=== PATIENT | female | born 1980 | race Caucasian/White ===

== ENCOUNTER → 2019-02-17 15:46 | Outpatient (CLI) | payer OTHER, SELFPAY ==
--- NOTE | 2019-02-17 15:49 | DI.RAD.S_ITS ---
PROCEDURE: XR LUMBAR SPINE 2-3V INDICATIONS: LOW BACK PAIN TECHNIQUE: 4 views of the lumbar spine were acquired. COMPARISON: None. FINDINGS: Bones: 5 [id number] vertebrae are present. Mild levocurvature of the upper lumbar spine. Multilevel lumbar spondylosis most prominent at the lumbosacral junction and thoracolumbar junction. No acute vertebral body compression fractures. Lower lumbar facet arthrosis. No suspicious bony lesions. Soft tissues: Overlying bowel gas pattern is normal. No suspicious soft tissue calcifications. Post cholecystectomy clips in the right upper abdomen. IMPRESSION: Lumbar spine without acute osseous abnormalities. Multilevel lumbar spondylosis. Dictated by: Torsten Obrien M.D. on 02/17/2019 at 16:35 Approved by: Torsten Obrien M.D. on 02/17/2019 at 16:37
== END ==
PROVIDERS: PCP Nurse Practitioner; Visit Provider Physician Assistant
DX: M54.5 Low back pain (principal); M47.816 Spondylosis without myelopathy or radiculopathy, lumbar region; M47.815 Spondylosis without myelopathy or radiculopathy, thoracolumbar region; M47.817 Spondylosis without myelopathy or radiculopathy, lumbosacral region
CPT/HCPCS: 72100

== ENCOUNTER 2020-07-21 22:18 | Emergency (ER) | payer OTHER, SELFPAY ==
[2020-07-21 22:25] VITALS: BP 182/101; PULSE 91; O2SAT 97
[2020-07-21 22:28] VITALS: BP 182/101; PULSE 97; RESP 20; O2SAT 99
[2020-07-21 22:30] VITALS: BP 147/98; PULSE 97; O2SAT 99
--- NOTE | 2020-07-21 22:32 | ED.ANXIETY ---
HPI - Anxiety General Chief Complaint: Anxiety Stated Complaint: difficulty breathing Time Seen by Provider: 07/21/20 22:28 Source: patient and family () Mode of arrival: Wheelchair Limitations: no limitations History of Present Illness HPI narrative: 40-year-old female with a known history of anxiety here for evaluation of a panic attack, acute anxiety, chest discomfort. Patient's provides most of the HPI secondary to the patient's unwillingness/inability to answer questions secondary to crying and having a panic attack. He states that earlier this evening without any specific cause the patient started having a panic attack. She is also having left-sided chest discomfort. They took aspirin prior to arrival. Patient's states the patient has had heart issues in the past. Patient's states that her primary doctor told her that she probably had ?a small heart attack? he did not do any other information regarding this. She did not take any of her anxiety medicines prior to arrival Related Data Home Medications Medication Instructions Recorded Confirmed aspirin 81 mg tablet,delayed 81 mg PO DAILY 02/17/19 02/17/19 release atorvastatin 20 mg tablet 20 mg PO DAILY 02/17/19 02/17/19 clopidogrel 75 mg tablet 75 mg PO DAILY 02/17/19 02/17/19 doxycycline monohydrate 100 mg 100 mg PO DAILY 02/17/19 02/17/19 capsule lisinopril 5 mg tablet 5 mg PO DAILY 02/17/19 02/17/19 metoprolol succinate 25 mg capsule 25 mg PO DAILY 02/17/19 02/17/19 sprinkle, ext. release 24 hr prazosin 1 mg capsule 1 mg PO BID 02/17/19 02/17/19 spironolactone 50 mg tablet 50 mg PO BID 02/17/19 02/17/19 Previous Rx's Medication Instructions Recorded cyclobenzaprine 10 mg tablet 10 mg PO BEDTIME #30 tab 02/17/19 Allergies Allergy/AdvReac Type Severity Reaction Status Date / Time No Known Drug Allergies Allergy Verified 02/17/19 14:45 Review of Systems Constitutional Constitutional: Denies fever(s) and Denies headache(s) ENT Ears, Nose, Mouth, and Throat: Denies headache(s) Cardiovascular Cardiovascular: Reports chest pain and Reports dyspnea Respiratory Respiratory: Denies cough and Reports dyspnea Gastrointestinal Gastrointestinal: Denies nausea and Denies vomiting Musculoskeletal Musculoskeletal: Denies arthralgias and Denies myalgias Integumentary/Breasts Skin/Breast: Denies rash Neurologic Neurologic: Denies behavioral changes and Denies headache(s) Psychiatric Psychiatric: Denies behavioral changes Hematologic/Lymphatic Hematologic/Lymphatic: Denies easy bleeding and Denies easy bruising Patient History Medical History Anxiety (Acute) Social History Smoking Status: Former smoker Smoking Status: Former smoker Exam Initial Vital Signs Initial Vital Signs: Vital Signs Pulse Rate 91 H 07/21/20 22:25 Blood Pressure 182/101 H 07/21/20 22:25 Pulse Oximetry 97 07/21/20 22:25 Const General: anxious Limitations: mental status not altered HENMT Head: normal to inspection and normocephalic Chest Chest: No crepitus and tenderness (Left-sided chest) Resp Effort & Inspection: normal respiratory effort Auscultation: clear to auscultation bilaterally Cardio Rate: regular rate Rhythm: regular rhythm Skin Lesions: no lesions Rashes: no rashes Neuro General: patient alert and patient awake Extrem General: normal to inspection and capillary refill normal Psych Appearance: well kempt Speech and Movement: restless Mood: anxious mood Course Orders Ordered: ED Orders 07/21/20 22:32 EKG-12 Lead Stat 07/21/20 23:14 XR chest 1V Stat 07/21/20 23:20 Basic Metabolic Panel Stat Complete Blood Count AUTO DIFF Stat Troponin & CK Cardiac Panel Stat Discontinued Medications Lorazepam (Ativan) 1 mg PO NOW ONE Stop: 07/21/20 22:33 Last Admin: 07/21/20 22:38 Dose: 1 mg Documented by: AUPDIKE Vital Signs Vital signs: Vital Signs - 8 hr 07/21/20 22:25 07/21/20 22:28 07/21/20 22:30 Pulse Rate 91 H 97 H 97 H Respiratory Rate 20 Blood Pressure 182/101 H 182/101 H 147/98 H Pulse Oximetry 97 99 99 07/21/20 23:00 07/21/20 23:30 07/21/20 23:48 Pulse Rate 86 84 90 Respiratory Rate Blood Pressure 157/90 H 145/88 H Pulse Oximetry 95 96 97 07/22/20 00:00 Pulse Rate 89 Respiratory Rate Blood Pressure Pulse Oximetry 97 MDM - Anxiety Medical Records Attestation: I reviewed the patient's medical records. Lab Data Attestation: I reviewed the patient's lab results. Result diagrams: 07/21/20 23:20 07/21/20 23:20 Labs: Lab Results 07/21/20 07/21/20 Range/Units 23:20 23:20 WBC 10.4 (4.5-11.0) X10^3/uL RBC 4.28 (4.0-5.2) X10^6/uL Hgb 12.9 (12.0-16.0) g/dL Hct 37.7 (36-46) % MCV 88.2 (80-100) fL MCH 30.3 (26-34) PG MCHC 34.3 (30-36) % RDW 13.1 (11.6-14.8) % Plt Count 334 (150-400) X10^3/uL Neut % (Auto) 60.4 (50-75) % Lymph % (Auto) 29.2 (25-40) % [place] % (Auto) 9.1 (3-14) % Eos % (Auto) 0.6 L (2-4) % Baso % (Auto) 0.7 (0-2) % Neut # (Auto) 6300 (7107-3846) /uL Lymph # (Auto) 3000 (4809-0501) /uL [place] # (Auto) 900 (0-900) /uL Eos # (Auto) 100 (0-450) /uL Baso # (Auto) 100 (0-100) /uL Sodium 137 (137-145) mmol/L Potassium 3.7 (3.4-5.1) mmol/L Chloride 103 (98-107) mmol/L Carbon Dioxide 30 (22-32) mmol/L BUN 21 H (7-17) mg/dL Creatinine 0.69 (0.52-1.04) mg/dL Estimated GFR > 60.0 (>60) mL/min BUN/Creatinine Ratio 30.4 H (6-22) Glucose 127 H (70-100) mg/dL Calcium 9.0 (8.4-10.2) mg/dL Total Creatine Kinase 177 H (30-135) U/L CK-MB (CK-2) 1.57 (<2.37) ng/mL CK-MB (CK-2) Rel Index 0.9 L (1.5-5.0) % Troponin I < 0.012 (0.01-0.034) ng/mL Imaging Data Chest x-ray: Attestation: I personally reviewed and interpreted this imaging study as follows: My Impression: No pneumothorax, no pneumonia ECG Data Attestation: I personally reviewed and interpreted this ECG as follows: Prior ECG tracings: not available for review Interpretation: Sinus rhythm Ventricular rate 88 Normal axis Normal QRS Normal QTC No ST T wave changes MDM Narrative Medical decision making narrative: Patient obviously having anxiety issues upon arrival. This did improve after oral Ativan. I do have low suspicion that her symptoms are ACS however patient insisted that she have blood drawn. This was unremarkable. Her EKG was unremarkable. Chest x-ray is unremarkable. The feel can hold on further workup for now. Patient going to contact her primary provider for follow-up. She expressed understanding and agreement. Discharge Plan Departure Patient Disposition: Home Clinical Impression: Acute anxiety Discharge Date/Time: 07/22/20 00:20 Instructions: DI for Anxiety -- Adult Activity Restrictions/Additional Instructions: Continue all of your medications as directed. I do recommend that you talk with her primary provider about the tingling that you are having in your hands. Return to the emergency department for any new or worsening symptoms Prescriptions: No Action atorvastatin 20 mg tablet 20 mg PO DAILY RF: 0 prazosin 1 mg capsule 1 mg PO BID RF: 0 clopidogrel [Plavix] 75 mg tablet 75 mg PO DAILY RF: 0 aspirin [Adult Aspirin Regimen] 81 mg tablet,delayed release (DR/EC) 81 mg PO DAILY RF: 0 doxycycline monohydrate 100 mg capsule 100 mg PO DAILY RF: 0 lisinopril 5 mg tablet 5 mg PO DAILY RF: 0 spironolactone 50 mg tablet 50 mg PO BID RF: 0 metoprolol succinate 25 mg capmainorle,ER 24hr dose pack 25 mg PO DAILY RF: 0 cyclobenzaprine 10 mg tablet 10 mg PO BEDTIME Qty: 30 RF: 0 Referrals: Jenae Villanueva ARNP [Primary Care Provider] -
[2020-07-21] MEDS: LORazepam 0.5 MG TABLET 1 MG PO (22:38)
[2020-07-21 23:00] VITALS: BP 157/90; PULSE 86; O2SAT 95
--- NOTE | 2020-07-21 23:10 | PC.NURSE ---
Pt states that the Ativan has began to help and is now able to speak in complete sentences. She did state that she does not believe that this is just an anxiety attack and is nervous about having had a heart attack. informed. Labs being ordered
--- NOTE | 2020-07-21 23:14 | DI.RAD.S_ITS ---
PROCEDURE: XR CHEST 1V INDICATIONS: Chest pain TECHNIQUE: One view of the chest was acquired. COMPARISON: None. FINDINGS: Surgical changes and devices: None. Lungs and pleura: Lungs are clear. No pleural effusions or pneumothorax. Mediastinum: Mediastinal contours appear normal. Heart size is normal. Bones and chest wall: No suspicious bony lesions. Overlying soft tissues appear unremarkable. IMPRESSION: No acute disease. Dictated by: Olegario Bates M.D. on 07/22/2020 at 8:25 Approved by: Olegario Bates M.D. on 07/22/2020 at 8:26
[2020-07-21 23:29] LABS: Add Manual Diff / Slide Review NO; Basophils Absolute Auto 100 /uL (0-100); Basophils Percent Auto 0.7 % (0-2); Eosinophils Absolute Auto 100 /uL (0-450); Eosinophils Percent Auto 0.6 % (2-4); Hematocrit 37.7 % (36-46); Hemoglobin 12.9 g/dL (12.0-16.0); Lymphocytes Absolute Auto 3000 /uL (1100-4500); Lymphocytes Percent Auto 29.2 % (25-40); Mean Corpuscular HGB Conc 34.3 % (30-36); Mean Corpuscular Hemoglobin 30.3 PG (26-34); Mean Corpuscular Volume 88.2 fL (80-100); Monocytes Absolute Auto 900 /uL (0-900); Monocytes Percent Auto 9.1 % (3-14); Neutrophils Absolute Auto 6300 /uL (1500-7000); Neutrophils Percent Auto 60.4 % (50-75); Platelet Count 334 X10^3/uL (150-400); Red Blood Cell Count 4.28 X10^6/uL (4.0-5.2); Red Cell Distribution Width 13.1 % (11.6-14.8); White Blood Cell Count 10.4 X10^3/uL (4.5-11.0)
[2020-07-21 23:30] VITALS: PULSE 84; O2SAT 96
[2020-07-21 23:35] LABS: HEMOLYSIS < 15 (0-50); Potassium 3.7 mmol/L (3.4-5.1)
[2020-07-21 23:37] LABS: BUN Creatinine Ratio 30.4 (6-22); Blood Urea Nitrogen 21 mg/dL (7-17); Carbon Dioxide 30 mmol/L (22-32); Chloride 103 mmol/L (98-107); Creatine Kinase 177 U/L (30-135); Estimated Glomerular Filt Rate > 60.0 mL/min (>60); Glucose 127 mg/dL (70-100); Sodium 137 mmol/L (137-145)
[2020-07-21 23:48] VITALS: BP 145/88; PULSE 90; O2SAT 97
[2020-07-21 23:50] LABS: Troponin I < 0.012 ng/mL (0.01-0.034)
[2020-07-21 23:53] LABS: CKMB % Relative Index 0.9 % (1.5-5.0); Creatine Kinase MB 1.57 ng/mL (<2.37)
[2020-07-22] VITALS: PULSE 89; O2SAT 97
== END 2020-07-22 00:20 | disposition home or self-care (01) ==
PROVIDERS: Emergency Provider Emergency Medicine; PCP Nurse Practitioner
DX: F41.9 Anxiety disorder, unspecified (principal); R07.9 Chest pain, unspecified; R06.00 Dyspnea, unspecified
CPT/HCPCS: 71045; 80048; 82550; 82553; 84484; 85025; 93005; 99283; 99284

== ENCOUNTER → 2020-11-11 15:24 | Outpatient (CLI) | payer OTHER, SELFPAY ==
[2020-11-11 16:23] LABS: COVID19 -Nasal RAPID Negative (Negative)
== END ==
PROVIDERS: PCP Nurse Practitioner; Visit Provider Family Medicine Sleep Medicine
DX: Z20.822 Contact with and (suspected) exposure to COVID-19 (principal)
CPT/HCPCS: 87635; C9803

== ENCOUNTER 2021-05-02 09:03 | Emergency (ER) | payer OTHER, SELFPAY ==
[2021-05-02] VITALS (12 sets, daily range): BP systolic 141–184; BP diastolic 73–121; PULSE 61–85; RESP 20; TEMP 36.9; O2SAT 95–99
--- NOTE | 2021-05-02 09:29 | ED.ABDPAIN ---
HPI - Abdominal Pain General Chief Complaint: Abdominal Pain Stated Complaint: abdominal pain since Time Seen by Provider: 05/02/21 09:29 History of Present Illness HPI narrative: 41-year-old female former smoker with history coronary artery disease, hypertension hyperlipidemia and prior ND presents with significant other and a chief complaint of gradually worsening right lower quadrant pain since evening. She states that it is something the came on rather suddenly and has been persistent and worsening since. She is in more pain with motion and improves but does not go away with rest. She does have some radiation to her back now. She denies fever or chills. She denies nausea, vomiting or diarrhea. She denies dysuria, frequency or urgency. She states she started her menstrual cycle on Sunday. Related Data Home Medications Medication Instructions Recorded Confirmed aspirin 81 mg tablet,delayed 81 mg PO DAILY 02/17/19 02/17/19 release (Adult Aspirin Regimen) atorvastatin 20 mg tablet 20 mg PO DAILY 02/17/19 02/17/19 clopidogrel 75 mg tablet (Plavix) 75 mg PO DAILY 02/17/19 02/17/19 doxycycline monohydrate 100 mg 100 mg PO DAILY 02/17/19 02/17/19 capsule lisinopril 5 mg tablet 5 mg PO DAILY 02/17/19 02/17/19 metoprolol succinate 25 mg capsule 25 mg PO DAILY 02/17/19 02/17/19 sprinkle, ext. release 24 hr prazosin 1 mg capsule 1 mg PO BID 02/17/19 02/17/19 spironolactone 50 mg tablet 50 mg PO BID 02/17/19 02/17/19 Previous Rx's Medication Instructions Recorded cyclobenzaprine 10 mg tablet 10 mg PO BEDTIME #30 tab 02/17/19 hydrocodone 5 mg-acetaminophen 325 1 tab PO Q4-6H PRN #10 tab 05/02/21 mg tablet ketorolac 10 mg tablet 10 mg PO Q6H PRN #14 tab 05/02/21 ondansetron 4 mg disintegrating 4 mg PO TID-QID PRN #10 tab 05/02/21 tablet Allergies Allergy/AdvReac Type Severity Reaction Status Date / Time No Known Drug Allergies Allergy Verified 05/02/21 09:35 Review of Systems Review of Systems Narrative: GENERAL: Denies chills, fatigue, malaise, fever, sweats. HEENT: Denies sinus pain, ear pain, sore throat, difficulty swallowing, dizziness. RESPIRATORY: Denies dyspnea, cough, wheezing, hemoptysis, sputum. CARDIOVASCULAR: Denies chest pain, palpitations, orthopnea, edema, GASTROINTESTINAL: See HPI : Denies dysuria, frequency, incontinence, hematuria, urinary retention. MUSCULOSKELETAL: denies weakness, joint pain, or bony pain SKIN: Denies rash, skin lesions, or other NEUROLOGIC: Denies weakness, headache, numbness, change in speech, confusion, seizures, incoordination. PSYCHIATRIC: No concerning psychosocial issues. 12 point review of systems is negative except for those stated above Patient History Medical History Anxiety Social History Smoking Status: Former smoker Smoking Status: Former smoker Exam Narrative Exam Narrative: GENERAL: [] year old patient appears stated age. Well-developed patient, in obvious distress, visibly uncomfortable, rubbing her right lower quadrant. HEAD: Atraumatic. Normocephalic. EYES: Pupils equal round and reactive. Extraocular motions intact. No scleral icterus. No injection or drainage. ENT: Nose without bleeding, purulent drainage. Throat without erythema, tonsillar hypertrophy or exudate. Airway patent. NECK: Trachea midline. Non tender CARDIOVASCULAR: Regular rate and rhythm without murmurs, gallops, or rubs. RESPIRATORY: Clear to auscultation. Breath sounds equal bilaterally. No wheezes, rales, or rhonchi. GASTROINTESTINAL: Abdomen soft, tender in right lower quadrant with voluntary guarding and localized peritonitis, bowel sounds present EXTREMITIES: No edema or joint tenderness. BACK: Nontender without deformity or crepitance. No flank tenderness. NEURO: AOx3. SKIN: No rash or erythema of visible areas Initial Vital Signs Initial Vital Signs: Vital Signs Temperature 98.5 F 05/02/21 09:15 Pulse Rate 81 05/02/21 09:15 Respiratory Rate 20 05/02/21 09:15 Blood Pressure 184/121 H 05/02/21 09:15 Pulse Oximetry 99 05/02/21 09:15 Course Orders Ordered: ED Orders 05/02/21 09:31 Complete Blood Count AUTO DIFF Stat Comprehensive Metabolic Panel Stat Lipase Stat 05/02/21 09:40 EKG-12 Lead Stat 05/02/21 09:49 CT abdomen pelvis w con Stat 05/02/21 11:16 US pelvic complete Stat 05/02/21 11:25 Urinalysis and Microscopic Stat Discontinued Medications Hydromorphone HCl (Hydromorphone 0.5 Mg Inj) 0.5 mg IV NOW ONE Stop: 05/02/21 11:12 Last Admin: 05/02/21 11:27 Dose: 0.5 mg Documented by: CL Sodium Chloride (Normal Saline 0.9%) 1,000 mls @ 1,000 mls/hr IV BOLUS ONE Stop: 05/02/21 10:48 Last Infusion: 05/02/21 11:27 Dose: 0 mls/hr Documented by: Admin: 05/02/21 10:04 Dose: 1,000 mls/hr Documented by: CL Ketorolac Tromethamine (Ketorolac 30 Mg/Ml Vial) 15 mg IV NOW ONE Stop: 05/02/21 09:50 Last Admin: 05/02/21 10:04 Dose: 15 mg Documented by: CL Ondansetron HCl (Ondansetron 4 Mg/2 Ml Inj) 4 mg IV NOW ONE Stop: 05/02/21 09:33 Last Admin: 05/02/21 09:50 Dose: 4 mg Documented by: CL Vital Signs Vital signs: Vital Signs - 8 hr 05/02/21 09:15 05/02/21 09:24 05/02/21 10:18 Temperature 98.5 F Pulse Rate 81 83 77 Respiratory Rate 20 Blood Pressure 184/121 H Pulse Oximetry 99 98 95 05/02/21 10:20 05/02/21 10:37 05/02/21 11:09 Temperature Pulse Rate 71 85 77 Respiratory Rate Blood Pressure 172/81 H Pulse Oximetry 98 98 96 05/02/21 11:10 Temperature Pulse Rate 78 Respiratory Rate Blood Pressure 171/92 H Pulse Oximetry 96 MDM - Abdominal Pain Lab Data Result diagrams: 05/02/21 09:31 05/02/21 09:31 Labs: Lab Results 05/02/21 05/02/21 05/02/21 Range/Units 09:31 09:31 11:25 WBC 7.3 (4.5-11.0) X10^3/uL RBC 4.49 (4.0-5.2) X10^6/uL Hgb 13.3 (12.0-16.0) g/dL Hct 39.0 (36-46) % MCV 86.7 (80-100) fL MCH 29.6 (26-34) PG MCHC 34.2 (30-36) % RDW 13.2 (11.6-14.8) % Plt Count 294 (150-400) X10^3/uL Neut % (Auto) 57.2 (50-75) % Lymph % (Auto) 32.4 (25-40) % [place] % (Auto) 8.8 (3-14) % Eos % (Auto) 1.2 L (2-4) % Baso % (Auto) 0.4 (0-2) % Neut # (Auto) 4200 (6745-0783) /uL Lymph # (Auto) 2400 (6110-7308) /uL [place] # (Auto) 600 (0-900) /uL Eos # (Auto) 100 (0-450) /uL Baso # (Auto) 0 (0-100) /uL Sodium 136 L (137-145) mmol/L Potassium 4.2 (3.4-5.1) mmol/L Chloride 103 (98-107) mmol/L Carbon Dioxide 25 (22-32) mmol/L BUN 13 (7-17) mg/dL Creatinine 0.44 L (0.52-1.04) mg/dL Estimated GFR > 60.0 (>60) mL/min BUN/Creatinine Ratio 29.5 H (6-22) Glucose 171 H (70-100) mg/dL Calcium 9.4 (8.4-10.2) mg/dL Total Bilirubin 0.5 (0.2-1.3) mg/dL AST 29 (14-36) IU/L ALT 24 (<35) IU/L Alkaline Phosphatase 117 (38-126) U/L Total Protein 7.5 (6.3-8.2) g/dL Albumin 4.2 (3.5-5.0) g/dL Globulin 3.3 (1.7-4.1) g/dL Albumin/Globulin Ratio 1.3 (1.0-2.8) Lipase 76 (23-300) U/L Urine Color Yellow Urine Appearance Clear Urine pH 7.0 (4.5-8.0) Ur Specific [place] 1.010 (1.000-1.035) Urine Protein Negative (Negative) Urine Glucose (UA) Negative (Negative) g/dL Urine Ketones Negative (NEGATIVE) Urine Occult Blood Negative (Negative) Urine Nitrate Negative (Negative) Urine Bilirubin Negative (NEGATIVE) Urine Urobilinogen 0.2 (0.2) E.U./dL Ur Leukocyte Esterase Negative (NEGATIVE) Urine RBC None seen (0-5/HPF) Urine WBC None seen (0-5/HPF) Ur Squamous Epith Cells 0-1 /hpf (0-5/HPF) Urine Bacteria Occasional (0-1) (None) Ur Culture Indicated? Cult not indicated Discharge Plan Departure Patient Disposition: Home Clinical Impression: Ovarian cyst Qualifiers: Laterality: right Qualified Code(s): N83.201 - Unspecified ovarian cyst, right side Instructions: DI for Ovarian Cyst Activity Restrictions/Additional Instructions: *You have been diagnosed with [right lower quadrant pain from ovarian cyst. CT scan was very reassuring and there is no evidence of appendicitis or kidney stone.] *What to do: *Please continue to take your regular medications as directed. [x ] New medication prescriptions sent to your pharmacy: [ ] [ ] New medication written as a paper prescription [ ] No new medications given *Please follow up with your primary care provider in 2-3 days, call for an appointment. Let them know you were seen in the Emergency Department and that we ask that you be seen in follow up. We will electronically transmit a record of today's note if your PCP is in our system *If you do not have a primary care provider please contact the [facility] Resource line at [phone]. They will ask some questions about your medical history and help get you set up with a doctor in the community. *Return to Emergency Department if you should have any new, worsening or concerning symptoms, such as [fever greater than 101 F, shaking chills, worsening pain, persistent vomiting or other bothersome symptoms] Prescriptions: New hydrocodone-acetaminophen 5-325 mg tablet 1 tab PO Q4-6H PRN (Reason: pain) Qty: 10 RF: 0 ketorolac 10 mg tablet 10 mg PO Q6H PRN (Reason: pain) Qty: 14 RF: 0 ondansetron 4 mg tablet,disintegrating 4 mg PO TID-QID PRN (Reason: nausea and vomiting) Qty: 10 RF: 0 No Action atorvastatin 20 mg tablet 20 mg PO DAILY RF: 0 prazosin 1 mg capsule 1 mg PO BID RF: 0 clopidogrel [Plavix] 75 mg tablet 75 mg PO DAILY RF: 0 aspirin [Adult Aspirin Regimen] 81 mg tablet,delayed release (DR/EC) 81 mg PO DAILY RF: 0 doxycycline monohydrate 100 mg capsule 100 mg PO DAILY RF: 0 lisinopril 5 mg tablet 5 mg PO DAILY RF: 0 spironolactone 50 mg tablet 50 mg PO BID RF: 0 metoprolol succinate 25 mg cap,sprinkle,ER 24hr dose pack 25 mg PO DAILY RF: 0 cyclobenzaprine 10 mg tablet 10 mg PO BEDTIME Qty: 30 RF: 0 Referrals: Jenae Villanueva ARNP [Primary Care Provider] - Stand Alone Forms: Work Release Note
[2021-05-02 09:42] LABS: Add Manual Diff / Slide Review NO; Basophils Absolute Auto 0 /uL (0-100); Basophils Percent Auto 0.4 % (0-2); Eosinophils Absolute Auto 100 /uL (0-450); Eosinophils Percent Auto 1.2 % (2-4); Hemoglobin 13.3 g/dL (12.0-16.0); Lymphocytes Absolute Auto 2400 /uL (1100-4500); Lymphocytes Percent Auto 32.4 % (25-40); Mean Corpuscular HGB Conc 34.2 % (30-36); Mean Corpuscular Hemoglobin 29.6 PG (26-34); Mean Corpuscular Volume 86.7 fL (80-100); Monocytes Absolute Auto 600 /uL (0-900); Monocytes Percent Auto 8.8 % (3-14); Neutrophils Absolute Auto 4200 /uL (1500-7000); Neutrophils Percent Auto 57.2 % (50-75); Platelet Count 294 X10^3/uL (150-400); Red Blood Cell Count 4.49 X10^6/uL (4.0-5.2); Red Cell Distribution Width 13.2 % (11.6-14.8); White Blood Cell Count 7.3 X10^3/uL (4.5-11.0)
[2021-05-02 09:49] LABS: Alanine Aminotransferase 24 IU/L (<35); Albumin 4.2 g/dL (3.5-5.0); Albumin Globulin Ratio 1.3 (1.0-2.8); Alkaline Phosphatase 117 U/L (38-126); Aspartate Aminotransferase 29 IU/L (14-36); BUN Creatinine Ratio 29.5 (6-22); Bilirubin Total 0.5 mg/dL (0.2-1.3); Blood Urea Nitrogen 13 mg/dL (7-17); Calcium 9.4 mg/dL (8.4-10.2); Carbon Dioxide 25 mmol/L (22-32); Chloride 103 mmol/L (98-107); Estimated Glomerular Filt Rate > 60.0 mL/min (>60); Globulin 3.3 g/dL (1.7-4.1); Glucose 171 mg/dL (70-100); HEMOLYSIS 22 (0-50); Lipase 76 U/L (23-300); Potassium 4.2 mmol/L (3.4-5.1); Sodium 136 mmol/L (137-145); Total Protein 7.5 g/dL (6.3-8.2)
--- NOTE | 2021-05-02 09:49 | DI.CT.S_ITS ---
PROCEDURE: CT ABDOMEN PELVIS W CON INDICATIONS: severe RLQ pain since Sunday, local peritonitis TECHNIQUE: After the administration of intravenous contrast, axial sections acquired from the lung bases to the pubic symphysis. Coronal and sagittal reformats were performed. For radiation dose reduction, the following was used: automated exposure control, adjustment of mA and/or kV according to patient size. COMPARISON: None. FINDINGS: Image quality: Excellent. Lung bases: Unremarkable. Heart: No significant findings. ABDOMEN: Liver: Mild hepatic steatosis. Gallbladder: Surgically absent. Biliary ducts: Unremarkable. Pancreas: Unremarkable. Spleen: Unremarkable. Adrenal Glands: Unremarkable. Kidneys and Ureters: Unremarkable. Stomach and Bowel: Stomach, small bowel loops, and colon are unremarkable. A normal appendix is seen. No periappendiceal inflammation. Peritoneum: No abnormal intraperitoneal fluid. No free air. Ventral Wall: No hernias. Abdominal Nodes: No retroperitoneal or mesenteric adenopathy by size criteria. Vessels: Aorta and inferior vena cava are normal in size. PELVIS: Pelvic Organs: Unremarkable. Normal uterus and left ovary. 4.7 cm right ovarian/paraovarian cyst. Tampon in the vaginal canal. Bladder: Decompressed. Pelvic Nodes: No enlarged lymph nodes. Miscellaneous: No hernias are seen. Bones: Unremarkable. IMPRESSION: 1. Normal appendix. 2. Prominent right ovarian/paraovarian cyst. This may be symptomatic. Consider pelvic ultrasound. 3. Mild hepatic steatosis. 4. Post cholecystectomy. Dictated by: Cass Pearson M.D. on 05/02/2021 at 10:59 Approved by: Cass Pearson M.D. on 05/02/2021 at 11:10
[2021-05-02] MEDS: ONDANSETRON 4 MG/2 ML INJ IV (09:50)
[2021-05-02] MEDS: SODIUM CHLORIDE 0.9% 1,000 ML 1000 ML IV (10:04)
[2021-05-02] MEDS: KETOROLAC 30 MG/ML VIAL 15 MG IV (10:04)
--- NOTE | 2021-05-02 11:16 | DI.US.S_ITS ---
PROCEDURE: US PELVIC COMPLETE INDICATIONS: RLQ PAIN; CYST ON CT TECHNIQUE: Real-time scanning was performed of the pelvic organs, with image documentation. Additional endovaginal scanning was necessary due to incomplete visualization of the adnexal and endometrial structures by transabdominal scanning. COMPARISON: None. FINDINGS: Uterus: Uterus is anteverted and slightly enlarged in size at 10.5 x 4.7 x 6.7 cm. The endometrium measures 10.1 mm in combined thickness. Ovaries: The ovaries were not well seen secondary to patient body habitus. In the right adnexa, there is a simple cyst seen best by transabdominal imaging measuring 4.8 x 3.0 x 3.5 cm. No associated fluid. No internal echoes. Vascularity was not obtainable due to body habitus. Other: No pathologic free abdominal or pelvic fluid. IMPRESSION: 1. Probable simple right paraovarian cyst. Recommend ultrasound in 6-8 weeks to assess for resolution. 2. Normal uterus. 3. Nonvisualization of either ovary. Dictated by: Cass Pearson M.D. on 05/02/2021 at 12:18 Approved by: Cass Pearson M.D. on 05/02/2021 at 12:21
[2021-05-02] MEDS: HYDROMORPHONE 0.5 MG INJ IV (11:27)
[2021-05-02 11:30] LABS: RBC Urine None Seen (0-5/HPF); WBC Urine None Seen (0-5/HPF)
[2021-05-02 11:31] LABS: Appearance Urine UA CLEAR; Bilirubin Urine UA NEGATIVE (NEGATIVE); Color Urine UA YELLOW; Glucose Urine UA NEGATIVE (Negative); Ketones Urine UA NEGATIVE (NEGATIVE); Leukocyte Esterase Urine UA NEGATIVE (NEGATIVE); Nitrite Urine UA NEGATIVE (Negative); Occult Blood Urine UA NEGATIVE (Negative); Protein Urine UA NEGATIVE (Negative); Urobilinogen Urine UA 0.2 E.U./dL (0.2)
[2021-05-02 11:40] LABS: Bacteria Urine Occasional (0-1); Squamous Epithelial Cell Urine 0-1 /HPF (0-5/HPF)
[2021-05-02 11:41] LABS: Culture Indicated Urine Cult Not Indicated
== END 2021-05-02 12:49 | disposition home or self-care (01) ==
PROVIDERS: Emergency Provider Emergency Medicine; PCP Nurse Practitioner
DX: N83.201 Unspecified ovarian cyst, right side (principal)
CPT/HCPCS: 36415; 74177; 76830; 76856; 80053; 81001; 83690; 85025; 93005; 96361; 96374; 96375; 99284; J1170; J1885; J2405; Q9967

== ENCOUNTER 2022-05-27 20:16 | Emergency (ER) | payer OTHER, SELFPAY ==
[2022-05-27 20:22] VITALS: BP 176/93; PULSE 100; RESP 24; TEMP 36.7; O2SAT 96
--- NOTE | 2022-05-27 21:04 | ED.HA ---
HPI - Headache General Chief Complaint: Headache Stated Complaint: GLF to head, nausea Time Seen by Provider: 05/27/22 20:55 Mode of arrival: Ambulatory History of Present Illness HPI Narrative: This 42-[facility]. She has no significant past medical history. She takes aspirin only. She was sitting in her bed and she lay back very quickly and hit her head on the wooden headboard. She was dazed for a moment. Her witnessed the event. She had no seizure activity. She was able to get up off the bed and walk to the bathroom. Pain was quite significant and so she came to the hospital for further evaluation. No vomiting. No loss of consciousness. Related Data Home Medications Medication Instructions Recorded Confirmed aspirin 81 mg tablet,delayed 81 mg PO DAILY 02/17/19 08/25/21 release (Adult Aspirin Regimen) atorvastatin 20 mg tablet 20 mg PO DAILY 02/17/19 08/25/21 doxycycline monohydrate 100 mg 100 mg PO DAILY 02/17/19 08/25/21 capsule lisinopril 5 mg tablet 5 mg PO DAILY 02/17/19 08/25/21 metoprolol succinate 25 mg capsule 25 mg PO DAILY 02/17/19 08/25/21 sprinkle, ext. release 24 hr prazosin 1 mg capsule 1 mg PO BID 02/17/19 08/25/21 spironolactone 50 mg tablet 50 mg PO BID 02/17/19 08/25/21 Previous Rx's Medication Instructions Recorded ketorolac 10 mg tablet 10 mg PO Q6H PRN pain #14 tabs 05/02/21 Allergies Allergy/AdvReac Type Severity Reaction Status Date / Time No Known Drug Allergies Allergy Verified 05/27/22 20:31 Review of Systems Review of Systems Narrative: Complete review of systems is negative other than as noted above. Patient History Medical History Anxiety Social History Smoking Status: Former smoker Smoking Status: Former smoker alcohol intake frequency: 0-2 drinks per day Substance Use Type: does not use Exam Narrative Exam Narrative: GENERAL: Alert, cooperative and in no distress. HEAD: Atraumatic. Normocephalic. Tenderness at the occiput. Full range of motion of the neck. No crepitus or deformity EYES: Sclera are clear without icterus. Extraocular movements are full. ENT: No rhinorrhea. Oropharynx is moist. Mouth exam is benign. NECK: Supple. Full range of motion. CARDIOVASCULAR: Normal rate and rhythm without murmur gallop or rub. RESPIRATORY: Clear to auscultation. Breath sounds equal bilaterally. No wheezes, rales, or rhonchi. GASTROINTESTINAL: Abdomen soft, non-tender, nondistended. EXTREMITIES: No edema, full range of motion. No obvious trauma. BACK: Normal inspection, no CVA tenderness. NEURO: Nonfocal examination, normal speech, normal gait. SKIN: No rash or erythema of visible areas PSYCH: Normally oriented. Normal range of affect. Appropriate behavior Initial Vital Signs Initial Vital Signs: Vital Signs Temperature 98.1 F 05/27/22 20:22 Pulse Rate 100 H 05/27/22 20:22 Respiratory Rate 24 05/27/22 20:22 Blood Pressure 176/93 H 05/27/22 20:22 Pulse Oximetry 96 05/27/22 20:22 Oxygen Delivery Method 05/27/22 20:[address] [place] [address] Head Rule Age <16 years old: Yes Patient on blood thinners: No Seizure after injury: No Exclusion: Patient meets exclusion criteria Course Vital Signs Vital signs: Vital Signs - 8 hr 05/27/22 20:22 Temperature 98.1 F Pulse Rate 100 H Respiratory Rate 24 Blood Pressure 176/93 H Pulse Oximetry 96 Oxygen Delivery Method Room Air MDM - Headache MDM Narrative Medical decision making narrative: This is a well-appearing lady with a low mechanism for injury. She has a GCS 15. No abnormal neurologic signs now. I think home discharge is appropriate. She is extremely anxious while in the emergency department. Discharge Plan Departure Patient Disposition: Home Clinical Impression: CHI (closed head injury) Instructions: DI for Concussion Activity Restrictions/Additional Instructions: No dangerous injury is suspected at this time. I recommend [id number] analgesic medications and ice packs for now. If severe symptoms persist beyond a day or 2, follow-up with your primary care doctor for further evaluation and treatment as indicated. Return to the emergency department for repeated vomiting, difficulty speaking seeing or walking or decreased level of consciousness. Prescriptions: No Action atorvastatin 20 mg tablet 20 mg PO DAILY prazosin 1 mg capsule 1 mg PO BID aspirin [Adult Aspirin Regimen] 81 mg tablet,delayed release (DR/EC) 81 mg PO DAILY doxycycline monohydrate 100 mg capsule 100 mg PO DAILY lisinopril 5 mg tablet 5 mg PO DAILY spironolactone 50 mg tablet 50 mg PO BID metoprolol succinate 25 mg cap,sprinkle,ER 24hr dose pack 25 mg PO DAILY ketorolac 10 mg tablet 10 mg PO Q6H PRN (Reason: pain) Qty: 14 0RF Referrals: Jenae Villanueva ARNP [Primary Care Provider] -
--- NOTE | 2022-05-27 21:05 | PC.NURSE ---
Pt tearfull and anxious, states I shouldn't be here. I want to go home. Reassured pt that we are here to help and that she is able to leave if she would like. Provided REAP booklet and MD was in the room shortly after to assess pt. Pt states I don't want any pain meds. Took 1000mg tylenol before coming into ED.
== END 2022-05-27 21:16 | disposition home or self-care (01) ==
PROVIDERS: Emergency Provider Family Medicine Addiction Medicine; PCP Nurse Practitioner
DX: S09.90XA Unspecified injury of head, initial encounter (principal); W22.8XXA Striking against or struck by other objects, initial encounter
CPT/HCPCS: 99281

== ENCOUNTER 2023-08-10 12:33 | Emergency (ER) | payer OTHER, SELFPAY ==
[2023-08-10 12:46] VITALS: BP 174/85; RESP 20; TEMP 36.9; O2SAT 98; BMI 43.2
--- NOTE | 2023-08-10 12:54 | DI.RAD.S_ITS ---
PROCEDURE: XR SHOULDER LT MIN 2V INDICATIONS: fall with L shoulder injury TECHNIQUE: 3 views of the shoulder were acquired. COMPARISON: [facility], CR, XR SHOULDER 2+ VIEWS LEFT, 06/27/2023, 13:04. FINDINGS: Bones: No fractures or dislocations. No suspicious bony lesions. Visualized ribs appear intact. Soft tissues: Amorphous calcifications adjacent to the greater tuberosity are again noted, most likely representing calcific tendinopathy. IMPRESSION: Rotator cuff calcific tendinopathy. No evidence acute bony abnormality. If clinical suspicion and/or symptoms persist, further assessment with repeat plain films, or advanced imaging (e.g., CT, MRI, or bone scan) may be helpful for further assessment. Dictated by: Karri Sims M.D. on 08/10/2023 at 13:31 Approved by: Karri Sims M.D. on 08/10/2023 at 13:33
--- NOTE | 2023-08-10 15:03 | ED_ITS ---
HPI - Extremity Injury (Upper) <Carolina Molina PA-C - Last Filed: 08/10/23 16:21> General Chief Complaint: Extremity Injury, Upper Stated Complaint: fell/lt arm work inj Time Seen by Provider: 08/10/23 14:28 Source: patient Mode of arrival: Ambulatory History of Present Illness HPI narrative: 43-year-old female with history of [place] 6 years ago hypertension hypercholesteremia and left shoulder pain presents for evaluation of exacerbation of shoulder pain after a fall at work. 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 Her pain is all localized to her left shoulder. She describes the pain as 10/10. It radiates into the upper arm. Pain increases with any movement. She has been seen in orthopedic clinic for a dose diagnosis of tendon this calcifications in the left shoulder. She has not had any further imaging studies other than plain x-ray. She denies any numbness or tingling in the hands. Related Data Home Medications Medication Instructions Recorded Confirmed aspirin 81 mg tablet,delayed 81 mg PO DAILY 02/17/19 08/25/21 release (Adult Aspirin Regimen) atorvastatin 20 mg tablet 20 mg PO DAILY 02/17/19 08/25/21 doxycycline monohydrate 100 mg 100 mg PO DAILY 02/17/19 08/25/21 capsule lisinopril 5 mg tablet 5 mg PO DAILY 02/17/19 08/25/21 metoprolol succinate 25 mg capsule 25 mg PO DAILY 02/17/19 08/25/21 sprinkle, ext. release 24 hr prazosin 1 mg capsule 1 mg PO BID 02/17/19 08/25/21 spironolactone 50 mg tablet 50 mg PO BID 02/17/19 08/25/21 Previous Rx's Medication Instructions Recorded ketorolac 10 mg tablet 10 mg PO Q6H PRN pain #14 tabs 05/02/21 hydrocodone 7.5 mg-acetaminophen 1 tab PO Q4-6H PRN pain #14 tabs 08/10/23 325 mg tablet Allergies Allergy/AdvReac Type Severity Reaction Status Date / Time No Known Drug Allergies Allergy Verified 05/27/22 20:31 Review of Systems <Carolina Molina PA-C - Last Filed: 08/10/23 16:21> Review of Systems ROS Unobtainable: All systems reviewed & are unremarkable except as noted in HPI and below Patient History <Carolina Molina PA-C - Last Filed: 08/10/23 16:21> Medical History Anxiety Social History Smoking Status: Former smoker Smoking Status: Former smoker alcohol intake frequency: a few times a week Substance Use Type: marijuana Exam <Carolina Molina PA-C - Last Filed: 08/10/23 16:21> Narrative Exam Narrative: Left arm guarding present. Tenderness to palpation anterior superior and inferior shoulder joint. On active range of motion she can lift her left arm to approximately 45? but no further. Passive range of motion to 50? before int olerable. Very limited internal rotation of the left shoulder. Left [employer] mail [employer] strength diminished due to pain. Neurologically intact in upper extremities. Right arm and shoulder without deficits Initial Vital Signs Initial Vital Signs: Vital Signs Temperature 98.5 F 08/10/23 12:46 Respiratory Rate 20 08/10/23 12:46 Blood Pressure 174/85 H 08/10/23 12:46 Pulse Oximetry 98 08/10/23 12:46 Oxygen Delivery Method Room Air 08/10/23 12:46 <Yvonne Dixon DO - Last Filed: 08/11/23 07:19> Initial Vital Signs Initial Vital Signs: Vital Signs Temperature 98.5 F 08/10/23 12:46 Respiratory Rate 20 08/10/23 12:46 Blood Pressure 174/85 H 08/10/23 12:46 Pulse Oximetry 98 08/10/23 12:46 Oxygen Delivery Method Room Air 08/10/23 12:46 Course <Carolina Molina PA-C - Last Filed: 08/10/23 16:21> Orders Ordered: Discontinued Medications Acetaminophen (Acetaminophen 325 Mg Tablet) 325 mg PO Q6H PRN PRN Reason: Fever/Mild Pain (1-3) Acetaminophen (Acetaminophen 325 Mg Tablet) 650 mg PO NOW ONE Stop: 08/10/23 15:14 Last Admin: 08/10/23 15:19 Dose: 650 mg Documented By: REANNA Hydrocodone Bitart/Acetaminophen (Hydrocodone/Acet 10/325 Tablet) 1 tab PO NOW ONE Stop: 08/10/23 15:00 Last Admin: 08/10/23 15:08 Dose: 1 tab Documented By: LIANG Hydromorphone HCl (Hydromorphone 1 Mg Inj) 1 mg IV NOW ONE Stop: 08/10/23 14:57 Last Admin: 08/10/23 16:12 Dose: Not Given Documented By: LIANG Ketorolac Tromethamine (Ketorolac 30 Mg/Ml Vial) 15 mg IV NOW ONE Stop: 08/10/23 14:57 Last Admin: 08/10/23 16:12 Dose: Not Given Documented By: LIANG Ketorolac Tromethamine (Ketorolac 30 Mg/Ml Vial) 30 mg IM NOW ONE Stop: 08/10/23 15:00 Last Admin: 08/10/23 16:12 Dose: Not Given Documented By: LIANG Ondansetron HCl (Ondansetron 4 Mg Odt) 4 mg SL NOW ONE Stop: 08/10/23 15:16 Last Admin: 08/10/23 15:19 Dose: 4 mg Documented By: REANNA Vital Signs Vital signs: Vital Signs - 8 hr 08/10/23 12:46 Temperature 98.5 F Respiratory Rate 20 Blood Pressure 174/85 H Pulse Oximetry 98 Oxygen Delivery Method Room Air <Yvonne Dixon DO - Last Filed: 08/11/23 07:19> Orders Ordered: Discontinued Medications Acetaminophen (Acetaminophen 325 Mg Tablet) 325 mg PO Q6H PRN PRN Reason: Fever/Mild Pain (1-3) Acetaminophen (Acetaminophen 325 Mg Tablet) 650 mg PO NOW ONE Stop: 08/10/23 15:14 Last Admin: 08/10/23 15:19 Dose: 650 mg Documented By: REANNA Hydrocodone Bitart/Acetaminophen (Hydrocodone/Acet 10/325 Tablet) 1 tab PO NOW ONE Stop: 08/10/23 15:00 Last Admin: 08/10/23 15:08 Dose: 1 tab Documented By: LIANG Hydromorphone HCl (Hydromorphone 1 Mg Inj) 1 mg IV NOW ONE Stop: 08/10/23 14:57 Last Admin: 08/10/23 16:12 Dose: Not Given Documented By: LIANG Ketorolac Tromethamine (Ketorolac 30 Mg/Ml Vial) 15 mg IV NOW ONE Stop: 08/10/23 14:57 Last Admin: 08/10/23 16:12 Dose: Not Given Documented By: BS Ketorolac Tromethamine (Ketorolac 30 Mg/Ml Vial) 30 mg IM NOW ONE Stop: 08/10/23 15:00 Last Admin: 08/10/23 16:12 Dose: Not Given Documented By: BS Ondansetron HCl (Ondansetron 4 Mg Odt) 4 mg SL NOW ONE Stop: 08/10/23 15:16 Last Admin: 08/10/23 15:19 Dose: 4 mg Documented By: KF Vital Signs Vital signs: Vital Signs - 8 hr 08/10/23 12:46 Temperature 98.5 F Respiratory Rate 20 Blood Pressure 174/85 H Pulse Oximetry 98 Oxygen Delivery Method Room Air [facility] - Extremity Injury (Upper) <Carolina Molina PA-C - Last Filed: 08/10/23 16:21> Imaging Data Extremity x-ray #1: Radiologist's Impression: PROCEDURE: XR SHOULDER LT MIN 2V INDICATIONS: fall with L shoulder injury TECHNIQUE: 3 views of the shoulder were acquired. COMPARISON: [facility], CR, XR SHOULDER 2+ VIEWS LEFT, 06/27/2023, 13:04. FINDINGS: Bones: No fractures or dislocations. No suspicious bony lesions. Visualized ribs appear intact. Soft tissues: Amorphous calcifications adjacent to the greater tuberosity are again noted, most likely representing calcific tendinopathy. IMPRESSION: Rotator cuff calcific tendinopathy. No evidence acute bony abnormality. If clinical suspicion and/or symptoms persist, further assessment with repeat plain films, or advanced imaging (e.g., CT, MRI, or bone scan) may be helpful for further assessment. Dictated by: Karri Sims M.D. on 08/10/2023 at 13:31 Approved by: Karri Sims M.D. on 08/10/2023 at 13:33 [facility] Narrative Medical decision making narrative: X-ray shows no evidence of bony abnormality there are some old calcifications. No dislocation noted. Patient received p.o. hydrocodone and Tylenol as well as Zofran and got good relief of her pain she went from about a /10 to 6/10. I suspect a more extensive soft tissue injury. Because the patient is already established with an orthopedic provider advise that she follow up with that person for further evaluation. She is happy with this plan. Discussed [id number] exercises sleep positions and pain relief. Discharge Plan Departure Patient Disposition: Home Clinical Impression: Strain of left shoulder Qualifiers: Encounter type: initial encounter Qualified Code(s): S46.912A - Strain of unspecified muscle, fascia and tendon at shoulder and upper arm level, left arm, initial encounter Activity Restrictions/Additional Instructions: You have a strain of the soft tissue of your left shoulder. Please wear the sling as needed for comfort. Take pain medication every 4-6 hours as needed. Elevate the arm when sleeping. Take the arm out of the sling 3 to 4 times a day and do gentle range of motion. Leaning forward and letting the gravity pulled the shoulder down is good initial exercise. You can then try rotating the arm in circles while bending over. Please follow-up with your orthopedic provider that you have already seen for further management. *Return to Emergency Department if you should have any new, worsening or concerning symptoms, such as [fever greater than 101 F, shaking chills, worsening pain, persistent vomiting or other bothersome symptoms] Prescriptions: New hydrocodone-acetaminophen 7.5-325 mg tablet 1 tab PO Q4-6H PRN (Reason: pain) Qty: 14 0RF No Action atorvastatin 20 mg tablet 20 mg PO DAILY prazosin 1 mg capsule 1 mg PO BID aspirin [Adult Aspirin Regimen] 81 mg tablet,delayed release (DR/EC) 81 mg PO DAILY doxycycline monohydrate 100 mg capsule 100 mg PO DAILY lisinopril 5 mg tablet 5 mg PO DAILY spironolactone 50 mg tablet 50 mg PO BID metoprolol succinate 25 mg capmainorle,ER 24hr dose pack 25 mg PO DAILY ketorolac 10 mg tablet 10 mg PO Q6H PRN (Reason: pain) Qty: 14 0RF Referrals: Jenae Villanueva ARNP [Primary Care Provider] - Stand Alone Forms: Patient Portal/API ED Sign-out <Yvonne Dixon DO - Last Filed: 08/11/23 07:19> Cosign ED Attending Jossie Attestation: I was immediately available in the department for consultation. Documentation has been reviewed.
[2023-08-10] MEDS: HYDROCODONE/ACET 10/325 TABLET 1 TAB PO (15:08)
[2023-08-10] MEDS: ONDANSETRON 4 MG ODT SL (15:19)
[2023-08-10] MEDS: ACETAMINOPHEN 325 MG TABLET 650 MG PO (15:19)
== END 2023-08-10 16:17 | disposition home or self-care (01) ==
PROVIDERS: Emergency Provider Physician Assistant; PCP Nurse Practitioner
DX: S46.912A Strain of unspecified muscle, fascia and tendon at shoulder and upper arm level, left arm, initial encounter (principal); W01.0XXA Fall on same level from slipping, tripping and stumbling without subsequent striking against object, initial encounter; Y99.0 Civilian activity done for income or pay
CPT/HCPCS: 73030; 99283

== ENCOUNTER 2024-08-11 11:29 | Emergency (ER) | payer BC, SELFPAY ==
[2024-08-11] VITALS (12 sets, daily range): BP systolic 120–166; BP diastolic 62–91; PULSE 76–115; RESP 13–22; TEMP 37.3; O2SAT 95–98; BMI 38.2
--- NOTE | 2024-08-11 11:41 | DI.RAD.S_ITS ---
PROCEDURE: XR CHEST 1V INDICATIONS: chest pain TECHNIQUE: One view of the chest was acquired. COMPARISON: None. FINDINGS: Surgical changes and devices: None. Lungs and pleura: Lungs are clear. No pleural effusions or pneumothorax. Mediastinum: Mediastinal contours appear normal. Heart size is normal. Bones and chest wall: No suspicious bony lesions. Overlying soft tissues appear unremarkable. IMPRESSION: No acute cardiopulmonary abnormality is seen. Dictated by: Brad Infante M.D. on 08/11/2024 at 12:04 Approved by: Brad Infante M.D. on 08/11/2024 at 12:05
--- NOTE | 2024-08-11 11:52 | EKG_ITS ---
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
[2024-08-11] MEDS: ASPIRIN 81 MG CHEW TAB 324 MG PO (12:30)
[2024-08-11 12:58] LABS: Add Manual Diff / Slide Review NO; Basophils Absolute Auto 100 /uL (0-100); Basophils Percent Auto 0.5 % (0-2); Eosinophils Absolute Auto 0 /uL (0-450); Eosinophils Percent Auto 0.4 % (2-4); Hematocrit 42.3 % (36-46); Hemoglobin 14.6 g/dL (12.0-16.0); Lymphocytes Absolute Auto 2700 /uL (1100-4500); Lymphocytes Percent Auto 27.6 % (25-40); Mean Corpuscular HGB Conc 34.4 % (30-36); Mean Corpuscular Volume 87.3 fL (80-100); Monocytes Absolute Auto 700 /uL (0-900); Neutrophils Absolute Auto 6400 /uL (1500-7000); Neutrophils Percent Auto 64.5 % (50-75); Platelet Count 348 X10^3/uL (150-400); Red Blood Cell Count 4.85 X10^6/uL (4.0-5.2); Red Cell Distribution Width 13.2 % (11.6-14.8); White Blood Cell Count 9.9 X10^3/uL (4.5-11.0)
[2024-08-11 13:02] LABS: Prothrombin Time 11.7 SECONDS (9.4-12.5)
[2024-08-11 13:05] LABS: Alanine Aminotransferase 20 IU/L (<35); Albumin 4.7 g/dL (3.5-5.0); Albumin Globulin Ratio 1.3 (1.0-2.8); Alkaline Phosphatase 163 U/L (38-126); Aspartate Aminotransferase 23 IU/L (14-36); BUN Creatinine Ratio 34.1 (6-22); Bilirubin Total 0.5 mg/dL (0.2-1.3); Blood Urea Nitrogen 15 mg/dL (7-17); Calcium 9.4 mg/dL (8.4-10.2); Carbon Dioxide 22 mmol/L (22-32); Chloride 104 mmol/L (98-107); Creatine Kinase 78 U/L (30-135); Estimated Glomerular Filt Rate > 60 mL/min (>60); Globulin 3.5 g/dL (1.7-4.1); Glucose 110 mg/dL (70-100); HEMOLYSIS < 15 (0-50); Lipase 132 U/L (23-300); Magnesium 1.6 mg/dL (1.6-2.3); PTT Partial Thromboplastin Tim 34 SECONDS (25.1-36.5); Potassium 3.8 mmol/L (3.4-5.1); Sodium 138 mmol/L (137-145); Total Protein 8.2 g/dL (6.3-8.2)
[2024-08-11 13:17] LABS: NT-proBNP (BNP-Adult 18+) < 20 pg/mL (<125); Troponin I < 0.012 ng/mL (0.01-0.034)
--- NOTE | 2024-08-11 15:34 | ED.CHESTPAIN ---
HPI - Chest Pain General Chief Complaint: Chest Pain Stated Complaint: High blood Pressure Time Seen by Provider: 08/11/24 15:15 Source: patient, RN notes reviewed and old records reviewed Mode of arrival: Ambulatory Limitations: no limitations History of Present Illness HPI narrative: 44-year-old female history of myocardial infarction but negative cardiac catheterization on aspirin, statin and beta blockers and PTSD/anxiety who presents with complaints of feeling shaky, dizzy and very anxious with elevated blood pressure while at work earlier today. States she checked herself on the monitor got a 180/160 with a heart rate of 120. 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 Patient states she does have a history of myocardial infarction, had cardiac catheterization which was negative but she was placed on aspirin, statin and medications for blood pressure at that time. She states they told her she might have had broken heart syndrome and that there was something wrong with the apex of her heart but nothing wrong with her coronary arteries. Patient states symptoms have since resolved. She states no chest pain or pressure no shortness of breath no nausea or vomiting no issues with bowel movements no issues with swelling of extremities. She states she has been a little sweaty but she was always a little sweaty. She states when she had her myocardial infarction she felt very anxious like an anxiety attack that would not stop but has a lot of pressure in her neck like her jugular was going to explode. She states it did not feel like that today but did not feel like a usual panic attack either. Patient states prior surgeries include her cardiac catheterization which she describes as negative for the coronary arteries, cholecystectomy and tubal. No known drug allergies. No tobacco, alcohol or recreational drugs. Dr. Villanueva is her primary care physician at [facility], she was following regularly with Cardiology but stopped after several visits. She does note a lot of stress recently. Related Data Home Medications Medication Instructions Recorded Confirmed aspirin 81 mg tablet,delayed 81 mg PO DAILY 02/17/19 08/25/21 release (Adult Aspirin Regimen) atorvastatin 20 mg tablet 20 mg PO DAILY 02/17/19 08/25/21 doxycycline monohydrate 100 mg 100 mg PO DAILY 02/17/19 08/25/21 capsule lisinopril 5 mg tablet 5 mg PO DAILY 02/17/19 08/25/21 metoprolol succinate 25 mg capsule 25 mg PO DAILY 02/17/19 08/25/21 sprinkle, ext. release 24 hr prazosin 1 mg capsule 1 mg PO BID 02/17/19 08/25/21 spironolactone 50 mg tablet 50 mg PO BID 02/17/19 08/25/21 Previous Rx's Medication Instructions Recorded ketorolac 10 mg tablet 10 mg PO Q6H PRN pain #14 tabs 05/02/21 hydrocodone 7.5 mg-acetaminophen 1 tab PO Q4-6H PRN pain #14 tabs 08/10/23 325 mg tablet Allergies Allergy/AdvReac Type Severity Reaction Status Date / Time No Known Drug Allergies Allergy Verified 08/11/24 11:40 Review of Systems Review of Systems ROS Unobtainable: All systems reviewed & are unremarkable except as noted in HPI and below Patient History Medical History Anxiety Social History Smoking Status: Former smoker Smoking Status: Former smoker alcohol intake frequency: holidays/special occasions only Substance Use Type: does not use Exam Narrative Exam Narrative: GENERAL: Alert and oriented x three, well-appearing female in mild distress HEENT: Head normocephalic, atraumatic, EOMI, pupils reactive, face symmetric, moist mucous membranes NECK: Supple, full range of motion CARDIOVASCULAR: Regular rate and rhythm without murmurs, rubs or gallops. No edema bilateral lower extremities. No JVD. RESPIRATORY: Breath sounds equal bilaterally, no wheezes rales or rhonchi. ABDOMEN: Soft, nontender. Normoactive bowel sounds all 4 quadrants. No guarding or rebound, rigidity, no mass : No CVA tenderness EXTREMITIES: Normal range of motion, no clubbing or edema. Neurovascularly intact NEUROLOGICAL: Cranial nerves II through XII grossly intact. Moving all extremities SKIN: Warm, dry, no petechiae, no rashes or lesions. Initial Vital Signs Initial Vital Signs: Vital Signs Temperature 99.2 F 08/11/24 11:35 Pulse Rate 115 H 08/11/24 11:35 Respiratory Rate 20 08/11/24 11:35 Blood Pressure 157/71 H 08/11/24 11:35 Pulse Oximetry 97 08/11/24 11:35 Oxygen Delivery Method Room Air 08/11/24 11:35 Course Orders Ordered: Discontinued Medications Aspirin (Aspirin 81 Mg Chew Tab) 324 mg PO NOW ONE Stop: 08/11/24 11:42 Last Admin: 08/11/24 12:30 Dose: 324 mg Documented By: ANDERS Vital Signs Vital signs: Vital Signs - 8 hr 08/11/24 11:35 08/11/24 12:36 08/11/24 12:40 Temperature 99.2 F Pulse Rate 115 H 91 H Respiratory Rate 20 22 Blood Pressure 157/71 H 144/83 H Pulse Oximetry 97 97 Oxygen Delivery Method Room Air Room Air 08/11/24 13:00 08/11/24 13:00 08/11/24 13:30 Temperature Pulse Rate 79 Respiratory Rate 16 Blood Pressure 134/67 148/84 H Pulse Oximetry 97 Oxygen Delivery Method Room Air 08/11/24 13:30 08/11/24 14:00 08/11/24 14:00 Temperature Pulse Rate 79 76 Respiratory Rate 16 13 Blood Pressure 139/85 Pulse Oximetry 96 98 Oxygen Delivery Method 08/11/24 14:30 08/11/24 14:30 08/11/24 15:53 Temperature Pulse Rate 81 85 Respiratory Rate 17 16 Blood Pressure 120/62 166/91 H Pulse Oximetry 97 98 Oxygen Delivery Method Room Air Room Air MDM - Chest Pain Lab Data 08/11/24 12:30 08/11/24 12:30 Labs: Lab Results 08/11/24 08/11/24 Range/Units 12:30 16:08 WBC 9.9 (4.5-11.0) X10^3/uL RBC 4.85 (4.0-5.2) X10^6/uL Hgb 14.6 (12.0-16.0) g/dL Hct 42.3 (36-46) % MCV 87.3 (80-100) fL MCH 30.0 (26-34) PG MCHC 34.4 (30-36) % RDW 13.2 (11.6-14.8) % Plt Count 348 (150-400) X10^3/uL Neut % (Auto) 64.5 (50-75) % Lymph % (Auto) 27.6 (25-40) % [place] % (Auto) 7.0 (3-14) % Eos % (Auto) 0.4 L (2-4) % Baso % (Auto) 0.5 (0-2) % Neut # (Auto) 6400 (1520-7644) /uL Lymph # (Auto) 2700 (0696-1936) /uL [place] # (Auto) 700 (0-900) /uL Eos # (Auto) 0 (0-450) /uL Baso # (Auto) 100 (0-100) /uL PT 11.7 (9.4-12.5) SECONDS INR 1.0 (0.9-1.3) APTT 34 (25.1-36.5) SECONDS Sodium 138 (137-145) mmol/L Potassium 3.8 (3.4-5.1) mmol/L Chloride 104 (98-107) mmol/L Carbon Dioxide 22 (22-32) mmol/L BUN 15 (7-17) mg/dL Creatinine 0.44 L (0.52-1.04) mg/dL Estimated GFR > 60 (>60) mL/min BUN/Creatinine Ratio 34.1 H (6-22) Glucose 110 H (70-100) mg/dL Calcium 9.4 (8.4-10.2) mg/dL Magnesium 1.6 (1.6-2.3) mg/dL Total Bilirubin 0.5 (0.2-1.3) mg/dL AST 23 (14-36) IU/L ALT 20 (<35) IU/L Alkaline Phosphatase 163 H (38-126) U/L Total Creatine Kinase 78 (30-135) U/L Troponin I < 0.012 < 0.012 (0.01-0.034) ng/mL NT-Pro-B Natriuret Pep < 20 (<125) pg/mL Total Protein 8.2 (6.3-8.2) g/dL Albumin 4.7 (3.5-5.0) g/dL Globulin 3.5 (1.7-4.1) g/dL Albumin/Globulin Ratio 1.3 (1.0-2.8) Lipase 132 (23-300) U/L Imaging Data Chest x-ray: Radiologist's Impression: [address] [address] XRay Report Signed Patient: Leighann Vines MR#: [id number] : 1980 Acct:[id number] Age/Sex: 44 / F Date of Service: 08/11/24 Loc: ED Accession Number: [id number] Procedure: XR chest 1V Ordering Provider: Karla Lino D.O. PROCEDURE: XR CHEST 1V INDICATIONS: chest pain TECHNIQUE: One view of the chest was acquired. COMPARISON: None. FINDINGS: Surgical changes and devices: None. Lungs and pleura: Lungs are clear. No pleural effusions or pneumothorax. Mediastinum: Mediastinal contours appear normal. Heart size is normal. Bones and chest wall: No suspicious bony lesions. Overlying soft tissues appear unremarkable. IMPRESSION: No acute cardiopulmonary abnormality is seen. Dictated by: Brad Infante M.D. on 08/11/2024 at 12:04 Approved by: Brad Infante M.D. on 08/11/2024 at 12:05 ECG Data Attestation: I personally reviewed and interpreted this ECG as follows: Prior ECG tracings: available for review Interpretation: EKG shows rate of 94 NJ 160 QRS 88 QTC of 452, no acute ST elevation or depression.? Patient has a prior 05/02/2021.? Patient no acute changes. EKG 2. Shows sinus rhythm rate 81 NJ 152 QRS of 96 QTC of 457. MDM Narrative Medical decision making narrative: 44-year-old female presents with complaint of hypertension at work as willing feeling shaky dizzy at anxious, patient has known history of [place] but states had negative cardiac catheterization was told she had broken heart but was placed on an aspirin and statin as well as beta natalie at that time. Labs show white count of 9.9 hemoglobin of 14.6 platelets of 348. Electrolytes are normal creatinine 0.44 glucose is 110 calcium 9.4 with a Mag 1.6 alk-phos is 163 but otherwise normal bilirubin, AST ALT and lipase. Troponins less than 0.012 with a BNP of less than 20. Chest x-ray shows no acute change EKG shows rate of 94 NJ 160 QRS 88 QTC of 452, no acute ST elevation or depression. Patient has a prior 05/02/2021. Acute change, patient has no dynamic change on repeat EKG. Repeat blood pressure 120/62 initially was 157/71. Discussed with patient she states this does feel different, blood pressures has been mildly elevated but have improved in general over time. Did increase while we were talking in the room. Patient feels much improved discussed return precautions all questions answered. Encouraged patient to follow up with primary care for repeat evaluation. Discharge Plan Departure Patient Disposition: Home Clinical Impression: Hypertension Instructions: DI for Atypical Chest Pain Activity Restrictions/Additional Instructions: Follow up with your physician for recheck. Your blood pressure was mildly elevated here but not persistently. If you have recurrent episodes of tachycardia or palpitations please follow up for Holter monitor or ZIO patch. Please continue your home medications as prescribed. Please return for new or worsening symptoms, recurrent chest pain, shortness of breath, symptoms similar to your prior myocardial infarction, diaphoresis or sweatiness, persistent vomiting, lightheadedness or passing out. Prescriptions: No Action atorvastatin 20 mg tablet 20 mg PO DAILY prazosin 1 mg capsule 1 mg PO BID aspirin [Adult Aspirin Regimen] 81 mg tablet,delayed release (DR/EC) 81 mg PO DAILY doxycycline monohydrate 100 mg capsule 100 mg PO DAILY lisinopril 5 mg tablet 5 mg PO DAILY spironolactone 50 mg tablet 50 mg PO BID metoprolol succinate 25 mg liza hillman,ER 24hr dose pack 25 mg PO DAILY ketorolac 10 mg tablet 10 mg PO Q6H PRN (Reason: pain) Qty: 14 0RF hydrocodone-acetaminophen 7.5-325 mg tablet 1 tab PO Q4-6H PRN (Reason: pain) Qty: 14 0RF Referrals: Jenae Villanueva ARNP [Primary Care Provider] - Stand Alone Forms: Patient Portal/API/Survey
--- NOTE | 2024-08-11 16:10 | EKG_ITS ---
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
[2024-08-11 16:44] LABS: Troponin I < 0.012 ng/mL (0.01-0.034)
== END 2024-08-11 17:02 | disposition home or self-care (01) ==
PROVIDERS: Emergency Provider Emergency Medicine; PCP Nurse Practitioner
DX: I10 Essential (primary) hypertension (principal); R07.9 Chest pain, unspecified; I25.2 Old myocardial infarction
CPT/HCPCS: 36415; 71045; 80053; 82550; 83690; 83735; 83880; 84484; 85025; 85610; 85730; 93005; 99284